=== PATIENT | male | born 1980 | race Two or more races ===

== ENCOUNTER 2021-08-30 14:54 | Emergency (ER) | payer MEDICAID ==
[~2021-08-30] VITALS: Ht 180.3 cm; Wt 113.4 kg
--- NOTE | 2021-08-30 15:00 | NUR ---
RECEIVED PT 41 YRS MALE CAME BY DAVE C/O CHEST PAIN CAME AND WILLIAM REAVED AFTER NIG SPRAY GIVEN TO PT
--- NOTE | 2021-08-30 15:18 | NUR ---
IV LINE IS ESTABLISHED, BLOOD SPECIMEN COLLECTED AND SENT TO THE LAB. THE LINE IS SALINE LOCKED.
[2021-08-30 15:33] LABS: BASOPHILS # (AUTO) 0.1 K/uL (0.0-0.2); BASOPHILS % (AUTO) 1.3 % (0.0-2.0); EOSINOPHILS % (AUTO) 3.7 % (0.0-6.0); HEMATOCRIT 46 % (39-51); LYMPHOCYTES # (AUTO) 3.1 K/uL (0.8-4.8); LYMPHOCYTES % (AUTO) 34.9 % (20.0-44.0); MEAN CORPUSCULAR HGB CONC 33 g/dl (31.0-36.0); MEAN CORPUSCULAR VOLUME 85 fL (80-96); MONOCYTES # (AUTO) 0.9 K/uL (0.1-1.30); MONOCYTES % (AUTO) 9.5 % (2.0-12.0); NEUTROPHILS # (AUTO) 4.6 K/uL (1.8-8.9); NEUTROPHILS % (AUTO) 50.6 % (43.0-81.0); PLATELET COUNT (AUTO) 275 K/uL (150-450); RED BLOOD CELL COUNT(AUTO) 5.36 MIL/uL (4.5-6.0)
[2021-08-30 15:52] LABS: CALCIUM, SERUM 9.3 mg/dL (8.5-10.1); CARBON DIOXIDE 29 mmol/L (21-32); CHLORIDE 104 mmol/L (98-107); CREATININE 1.4 mg/dL (0.6-1.3); GLUCOSE 102 mg/dL (74-106); SODIUM SERUM 140 mmol/L (136-145); UREA NITROGEN, BLOOD 25 mg/dL (7-18)
--- NOTE | 2021-08-30 16:27 | NUR ---
Susan for lab result
[2021-08-30] MEDS ORDERED: AMLO-212 PO (16:56)
[2021-08-30] MEDS ORDERED: LISI1TAB55 PO (16:56)
--- NOTE | 2021-08-30 17:02 | NUR ---
JODEE CHO SENT TO LAB
--- NOTE | 2021-08-30 18:27 | NUR ---
KATHIE JACQUES TALSERGIO BED
--- NOTE | 2021-08-30 19:35 | NUR ---
HAND OFF LENORA RN
--- NOTE | 2021-08-30 20:21 | NUR ---
PT CAP TO [facility] WORKING ON PLACEMENT # [phone]
[2021-08-30] MEDS ORDERED: NICOTINE PATCH (7MG) 7 MG PATCH.TD24 TD ONE (22:11)
[2021-08-30] MEDS ORDERED: NICOTINE PATCH (7MG) 7 MG PATCH.TD24 TD SCH (22:30)
--- NOTE | 2021-08-30 22:41 | NUR ---
RECEIVED CALL FROM DIANE ENGLAND, STATES WILL PUT IN REQUEST FOR ADMISSION, WILL PAGE MD FOR UPDATE AND CALL BACK
--- NOTE | 2021-08-30 23:00 | NUR ---
Patient does not wish to proceed with medical care recommended by Dr. Leyva. Patient given information related to possible complications, up to and including , which could occur as a result of leaving the hospital at this time. Patient verbalizes understanding of risks involved due to leaving against medical advice. Patient has signed AMA form.
[2021-08-30 23:01] VITALS: BP 122/70
== END 2021-08-30 23:01 | disposition left against medical advice (07) ==
LOC: ER 16:15
DX: R07.9 Chest pain, unspecified (principal); Z20.822 Contact with and (suspected) exposure to COVID-19; Z53.29 Procedure and treatment not carried out because of patient's decision for other reasons; I10 Essential (primary) hypertension; Z79.899 Other long term (current) drug therapy; F17.200 Nicotine dependence, unspecified, uncomplicated; R11.0 Nausea; R94.31 Abnormal electrocardiogram [ECG] [EKG]
CPT/HCPCS: 99291; 87426; 71045; 93005; 85025; 80048; 36415; 84484 ×2; 83880; C9803